=== PATIENT | male | born 1955 | race African-American/Black ===

== ENCOUNTER 2018-08-06 09:50 | Inpatient (IN) | payer OTHER ==
[~2018-08-06] VITALS: Ht 172.7 cm; Wt 90.7 kg
[2018-08-06] MEDS ORDERED: SODIUM CHLORIDE 0.9% 1,000 ML IV ONE ×2 (10:49→11:47)
[2018-08-06 11:11] LABS: BASOPHILS % 0.8 % (0.0-2.0); EOSINOPHILS % 0.3 % (0.0-5.0); HEMATOCRIT. 41.3 % (42.0-52.0); HEMOGLOBIN. 13.9 g/dL (14.0-18.0); LYMPHOCYTES % 13.9 % (20.0-50.0); MEAN CORPUSCULAR HEMOGLOBIN 30.8 pg (28.0-32.0); MEAN CORPUSCULAR VOLUME 91.8 fL (80.0-94.0); MEAN PLATELET VOLUME 9.4 fl (7.4-10.4); MONOCYTES % 9.1 % (2.0-8.0); NEUTROPHILS % 75.9 % (40.0-76.0); PLATELET 165 x1000/uL (130-400); RED CELL DISTRIBUTION WIDTH 13.7 % (11.6-14.6)
[2018-08-06 11:19] LABS: INR 1.1; PROTHROMBIN TIME 10.7 sec (9.1-11.1)
[2018-08-06 11:21] LABS: CHLORIDE 95 mEq/L (98-107); ETHANOL BLOOD < 10 mg/dL
[2018-08-06 11:30] LABS: BETA HYDROXYBUTYRATE 1.4 mMol/L (0.0-0.3)
[2018-08-06] MEDS ORDERED: ASPIRIN 325MG EC TABLET PO ONE (12:00)
[2018-08-06 14:39] LABS: CLARITY URINE CLEAR (CLEAR); COLOR URINE YELLOW (YELLOW); KETONES URINE 2+ (NEGATIVE); LEUKOCYTE ESTERASE URINE NEGATIVE (NEGATIVE); NITRITE URINE NEGATIVE (NEGATIVE); OCCULT BLOOD URINE NEGATIVE (NEGATIVE); PH URINE 5.5 (4.5-8.0); PROTEIN URINE NEGATIVE (NEGATIVE); SPECIFIC GRAVITY URINE 1.028 (1.005-1.030); UROBILINOGEN URINE 0.2 E.U./dL (0.2-1.0)
[2018-08-06 14:48] LABS: *AMPHETAMINES SCREEN URINE NEGATIVE (NEGATIVE)
[2018-08-06 14:49] LABS: *BARBITURATES SCREEN URINE NEGATIVE (NEGATIVE); *BENZODIAZEPINES SCREEN URINE NEGATIVE (NEGATIVE); *COCAINE SCREEN URINE NEGATIVE (NEGATIVE); METHADONE URINE SCREEN NEGATIVE (NEGATIVE); OPIATES URINE SCREEN NEGATIVE (NEGATIVE); PHENCYCLIDINE URINE SCREEN NEGATIVE (NEGATIVE)
[2018-08-06 14:50] LABS: CANNABINOID URINE SCREEN NEGATIVE (NEGATIVE)
[2018-08-06] MEDS ORDERED: DIPHENHYDRAMINE 50MG/ML VIAL IV PRN (15:00)
[2018-08-06] MEDS ORDERED: HYDROCODONE/ACETAMINOPHEN 5/325MG TABLET PO PRN (15:00)
[2018-08-06] MEDS ORDERED: IPRATROPIUM/ALBUTEROL 0.5-3(2.5)MG/3ML NEB INH PRN (15:00)
[2018-08-06] MEDS ORDERED: DOCUSATE SODIUM 100MG CAPSULE PO PRN (15:00)
[2018-08-06] MEDS ORDERED: MAGNESIUM/ALUMINUM HYDROXIDE/SIMETHICONE 30ML UDC PO PRN (15:00)
[2018-08-06] MEDS ORDERED: ACETAMINOPHEN 650MG SUPP PR PRN (15:00)
[2018-08-06] MEDS ORDERED: SODIUM CHLORIDE 0.45% 1,000 ML IV SCH (15:00)
[2018-08-06] MEDS ORDERED: NA PHOS,M-B/NA PHOS,DI-BA ENEMA 118ML PR PRN ×2 (15:00→17:15)
[2018-08-06] MEDS ORDERED: ACETAMINOPHEN 325MG TABLET PO PRN (15:00)
[2018-08-06] MEDS ORDERED: GUAIFENESIN 200MG/10ML SUGAR FREE UDC PO PRN (15:00)
[2018-08-06] MEDS ORDERED: DEXTROSE 50% WATER 50ML SYRINGE IV PRN (15:00)
[2018-08-06] MEDS ORDERED: LORAZEPAM 0.5MG TABLET PO PRN (15:00)
[2018-08-06] MEDS ORDERED: ONDANSETRON HCL 4MG/2ML INJ IV PRN (15:00)
[2018-08-06] MEDS ORDERED: BLOOD SUGAR DIAGNOSTIC STRIP TEST SCH (17:00)
[2018-08-06] MEDS: BLOOD SUGAR DIAGNOSTIC STRIP TEST SCH ×2 (17:40→20:52)
[2018-08-06] MEDS ORDERED: INSULIN LISPRO 100 UNITS/ML SUBCUT SCH (18:20)
[2018-08-06 18:23] VITALS: BP 148/78
[2018-08-06 18:31] VITALS: BP 148/78
[2018-08-06] MEDS ORDERED: ASPI-986 MT (18:56)
[2018-08-06] MEDS ORDERED: AMLO10TA80 MT (18:56)
[2018-08-06] MEDS ORDERED: COR25 MT (18:56)
[2018-08-06] MEDS ORDERED: CLOP75TA16 MT (18:56)
[2018-08-06] MEDS ORDERED: AZIL80TA MT (18:56)
[2018-08-06] MEDS ORDERED: CLON0.2T MT (18:56)
[2018-08-06] MEDS ORDERED: CLON0.2T PO (18:56)
[2018-08-06] MEDS ORDERED: DONE10TA43 MT (18:56)
[2018-08-06] MEDS ORDERED: BACL-141 MT (18:56)
[2018-08-06 20:00] VITALS: BP 130/74
[2018-08-06] MEDS: SODIUM CHLORIDE 0.45% 1,000 ML IV SCH (20:52)
[2018-08-06] MEDS: ENOXAPARIN 30MG/0.3ML SYR SUBCUT SCH (20:52)
[2018-08-06] MEDS: INSULIN LISPRO 100 UNITS/ML SUBCUT SCH (20:58)
[2018-08-07 00:15] VITALS: BP 109/61
[2018-08-07 01:02] LABS: CREATINE KINASE 106 IU/L (39-308)
[2018-08-07 04:00] VITALS: BP 115/72
[2018-08-07] MEDS: BLOOD SUGAR DIAGNOSTIC STRIP TEST SCH ×4 (06:28→21:48)
[2018-08-07] MEDS ORDERED: INSULIN LISPRO 100 UNITS/ML SUBCUT NR (06:29)
[2018-08-07] MEDS: INSULIN LISPRO 100 UNITS/ML SUBCUT SCH ×4 (06:44→21:59)
[2018-08-07 08:00] VITALS: BP 152/87
[2018-08-07] MEDS ORDERED: ASPIRIN 81MG EC TABLET PO SCH (09:00)
[2018-08-07 11:11] LABS: BASOPHILS % 0.7 % (0.0-2.0); EOSINOPHILS % 0.8 % (0.0-5.0); HEMATOCRIT. 38.1 % (42.0-52.0); HEMOGLOBIN. 12.8 g/dL (14.0-18.0); LYMPHOCYTES % 25.3 % (20.0-50.0); MEAN CORPUSCULAR HEMOGLOBIN 30.8 pg (28.0-32.0); MEAN CORPUSCULAR VOLUME 91.5 fL (80.0-94.0); MEAN PLATELET VOLUME 9.4 fl (7.4-10.4); MONOCYTES % 10.3 % (2.0-8.0); NEUTROPHILS % 62.9 % (40.0-76.0); PLATELET 151 x1000/uL (130-400); RED BLOOD CELL COUNT 4.17 mill/uL (4.7-6.1); RED CELL DISTRIBUTION WIDTH 13.8 % (11.6-14.6)
[2018-08-07] MEDS: ENOXAPARIN 30MG/0.3ML SYR SUBCUT SCH ×2 (11:42→22:24)
[2018-08-07] MEDS: ASPIRIN 81MG EC TABLET PO SCH (11:42)
[2018-08-07] MEDS: SODIUM CHLORIDE 0.45% 1,000 ML IV SCH ×2 (11:53→20:00)
[2018-08-07 12:00] VITALS: BP 178/94
[2018-08-07 12:08] LABS: T4 FREE 1.34 ng/dL (0.76-1.46)
[2018-08-07 12:36] LABS: VITAMIN B12 SERUM > 2000.0 pg/mL (211-911)
[2018-08-07 13:15] LABS: CHLORIDE 101 mEq/L (98-107)
[2018-08-07 13:22] LABS: LDL CHOLESTEROL 68 mg/dL (5-100)
[2018-08-07 13:23] LABS: CREATINE KINASE 91 IU/L (39-308)
[2018-08-07 13:24] LABS: HDL CHOLESTEROL 46 mg/dL (40-59); T4 FREE 1.37 ng/dL (0.76-1.46)
[2018-08-07 16:00] VITALS: BP 138/80
[2018-08-07] MEDS: AMLODIPINE 5MG TABLET PO SCH (18:11)
[2018-08-07 20:00] VITALS: BP 161/86
[2018-08-07] MEDS: INSULIN GLARGINE UD 100 UNITS/ML SYR SUBCUT SCH (21:54)
[2018-08-08 00:26] VITALS: BP 106/73
[2018-08-08 04:00] VITALS: BP 118/74
[2018-08-08] MEDS: AMLODIPINE 5MG TABLET PO SCH ×2 (06:00→18:02)
[2018-08-08] MEDS: BLOOD SUGAR DIAGNOSTIC STRIP TEST SCH ×4 (07:09→21:31)
[2018-08-08 07:11] LABS: CHLORIDE 105 mEq/L (98-107)
[2018-08-08 07:23] LABS: BASOPHILS % 0.8 % (0.0-2.0); EOSINOPHILS % 1.2 % (0.0-5.0); HEMATOCRIT. 38.6 % (42.0-52.0); LYMPHOCYTES % 30.7 % (20.0-50.0); MEAN CORPUSCULAR HEMOGLOBIN 30.5 pg (28.0-32.0); MEAN CORPUSCULAR VOLUME 90.4 fL (80.0-94.0); MEAN PLATELET VOLUME 9.2 fl (7.4-10.4); MONOCYTES % 11.4 % (2.0-8.0); NEUTROPHILS % 55.9 % (40.0-76.0); PLATELET 152 x1000/uL (130-400); RED BLOOD CELL COUNT 4.27 mill/uL (4.7-6.1)
[2018-08-08 08:00] VITALS: BP 181/102
[2018-08-08] MEDS: ASPIRIN 81MG EC TABLET PO SCH (08:30)
[2018-08-08] MEDS: ENOXAPARIN 30MG/0.3ML SYR SUBCUT SCH ×2 (08:31→21:31)
[2018-08-08] MEDS: CLONIDINE 0.1MG TABLET PO PRN (08:31)
[2018-08-08] MEDS: INSULIN LISPRO 100 UNITS/ML SUBCUT SCH ×4 (08:33→21:44)
[2018-08-08] MEDS: SODIUM CHLORIDE 0.45% 1,000 ML IV SCH (08:36)
[2018-08-08] MEDS: INSULIN GLARGINE UD 100 UNITS/ML SYR SUBCUT SCH ×2 (10:41→21:43)
[2018-08-08 12:00] VITALS: BP 151/85
[2018-08-08] MEDS ORDERED: CLONIDINE 0.1MG TABLET PO NR (14:15)
[2018-08-08 16:00] VITALS: BP 164/91
[2018-08-08 20:00] VITALS: BP 99/54
[2018-08-08] MEDS: CLONIDINE 0.1MG TABLET PO SCH (21:31)
[2018-08-09 00:12] VITALS: BP 143/84
[2018-08-09 04:00] VITALS: BP 148/89
[2018-08-09] MEDS: CLONIDINE 0.1MG TABLET PO SCH (06:13)
[2018-08-09] MEDS: AMLODIPINE 5MG TABLET PO SCH (06:14)
[2018-08-09] MEDS: INSULIN LISPRO 100 UNITS/ML SUBCUT SCH (06:14)
[2018-08-09] MEDS: BLOOD SUGAR DIAGNOSTIC STRIP TEST SCH (06:14)
[2018-08-09 06:45] LABS: CHLORIDE 106 mEq/L (98-107)
[2018-08-09 06:50] LABS: BASOPHILS % 0.9 % (0.0-2.0); EOSINOPHILS % 1.3 % (0.0-5.0); HEMATOCRIT. 38.2 % (42.0-52.0); HEMOGLOBIN. 12.9 g/dL (14.0-18.0); LYMPHOCYTES % 27.5 % (20.0-50.0); MEAN CORPUSCULAR HEMOGLOBIN 30.7 pg (28.0-32.0); MEAN PLATELET VOLUME 9.3 fl (7.4-10.4); MONOCYTES % 11.4 % (2.0-8.0); NEUTROPHILS % 58.9 % (40.0-76.0); PLATELET 151 x1000/uL (130-400); RED CELL DISTRIBUTION WIDTH 14.1 % (11.6-14.6)
[2018-08-09 08:00] VITALS: BP 186/92
[2018-08-09] MEDS: CLONIDINE 0.1MG TABLET PO PRN (08:40)
[2018-08-09] MEDS: ENOXAPARIN 30MG/0.3ML SYR SUBCUT SCH (08:40)
[2018-08-09] MEDS: ASPIRIN 81MG EC TABLET PO SCH (08:40)
[2018-08-09] MEDS ORDERED: POTASSIUM CHLORIDE 20MEQ TABLET SR PO NR (09:30)
[2018-08-09 09:56] VITALS: BP 106/72
[2018-08-09] MEDS: INSULIN GLARGINE UD 100 UNITS/ML SYR SUBCUT SCH (10:23)
== END 2018-08-09 11:02 | disposition home or self-care (01) | DRG 73 ==
LOC: ER 09:50 → EDBEDREQ 10:53 → 7WST 13:22 → EDBEDREQ 13:26 → ENRESERV 14:53 → ER 17:10
PROVIDERS: ADMIT Internal Medicine; ATTEND Internal Medicine
DX: G90.8 Other disorders of autonomic nervous system (principal); G92 Toxic encephalopathy; D68.59 Other primary thrombophilia; E87.2 Acidosis; I31.3 Pericardial effusion (noninflammatory); E11.65 Type 2 diabetes mellitus with hyperglycemia; E78.5 Hyperlipidemia, unspecified; D64.9 Anemia, unspecified; Z96.41 Presence of insulin pump (external) (internal); M48.02 Spinal stenosis, cervical region; M19.90 Unspecified osteoarthritis, unspecified site; R26.9 Unspecified abnormalities of gait and mobility; H53.461 Homonymous bilateral field defects, right side; I10 Essential (primary) hypertension; Z79.02 Long term (current) use of antithrombotics/antiplatelets; Z79.4 Long term (current) use of insulin; Z86.73 Personal history of transient ischemic attack (TIA), and cerebral infarction without residual deficits; Z91.041 Radiographic dye allergy status; Z79.899 Other long term (current) drug therapy; Z79.82 Long term (current) use of aspirin
CPT/HCPCS: 36415; 70551; 71045; 80048; 80061; 80305; 80320; 82010; 82140; 82550; 82553; 82607; 82746; 82962; 83036; 83605; 83880; 84439; 84443; 84481; 84484; 85379; 93005; 93306; 93880; 93970; 96360; 96361; 96372; 97162; 99291; J1650; J1815; J7030; G0480

== ENCOUNTER 2019-03-08 16:23 | Inpatient (IN) | payer OTHER ==
[~2019-03-08] VITALS: Ht 172.7 cm; Wt 83.5 kg
[~2019-03-08 16:23] MED LIST: AMLO10TA80 MT; ASPI-986 MT; AZIL80TA MT; BACL-141 MT; CLON0.2T MT; CLON0.2T PO; CLOP75TA4 MT; COR25 MT; DONE10TA43 MT
[2019-03-08] MEDS ORDERED: METHOCARBAMOL 750MG TABLET PO ONE (20:00)
[2019-03-08] MEDS ORDERED: MORPHINE SULFATE 10 MG/ML CPJ IM ONE (20:00)
[2019-03-08] MEDS ORDERED: KETOROLAC 60MG/2ML VIAL IM ONE (20:00)
[2019-03-08] MEDS ORDERED: CLONIDINE 0.2MG TABLET PO ONE (22:00)
[2019-03-08] MEDS ORDERED: HYDRALAZINE 20MG/ML VIAL IV ONE (22:30)
[2019-03-08 22:57] LABS: EOSINOPHILS % 1.1 % (0.0-5.0); HEMATOCRIT. 41.5 % (42.0-52.0); HEMOGLOBIN. 14.3 g/dL (14.0-18.0); LYMPHOCYTES % 29.1 % (20.0-50.0); MEAN CORPUSCULAR HEMOGLOBIN 30.8 pg (28.0-32.0); MEAN CORPUSCULAR VOLUME 89.3 fL (80.0-94.0); MEAN PLATELET VOLUME 8.9 fl (7.4-10.4); MONOCYTES % 8.6 % (2.0-8.0); NEUTROPHILS % 60.2 % (40.0-76.0); PLATELET 148 x1000/uL (130-400); RED BLOOD CELL COUNT 4.65 mill/uL (4.7-6.1); RED CELL DISTRIBUTION WIDTH 12.9 % (11.6-14.6)
[2019-03-08 23:02] LABS: CHLORIDE 104 mEq/L (98-107)
[2019-03-09 04:00] VITALS: BP 192/92
[2019-03-09 04:27] VITALS: BP 192/92
[2019-03-09 08:00] VITALS: BP 144/81
[2019-03-09 12:00] VITALS: BP 182/98
[2019-03-09] MEDS ORDERED: CLONIDINE 0.1MG TABLET PO PRN (12:30)
[2019-03-09] MEDS ORDERED: DIPHENHYDRAMINE 50MG/ML VIAL IV PRN (12:30)
[2019-03-09] MEDS ORDERED: GUAIFENESIN 200MG/10ML SUGAR FREE UDC PO PRN (12:30)
[2019-03-09] MEDS ORDERED: LORAZEPAM 0.5MG TABLET PO PRN (12:30)
[2019-03-09] MEDS ORDERED: BACLOFEN 10MG TABLET PO PRN (12:30)
[2019-03-09] MEDS ORDERED: HYDROCODONE/ACETAMINOPHEN 5/325MG TABLET PO PRN (12:30)
[2019-03-09] MEDS ORDERED: DOCUSATE SODIUM 100MG CAPSULE PO PRN (12:30)
[2019-03-09] MEDS ORDERED: IPRATROPIUM/ALBUTEROL 0.5-3(2.5)MG/3ML NEB NEB PRN (12:30)
[2019-03-09] MEDS ORDERED: ACETAMINOPHEN 650MG SUPP PR PRN (12:30)
[2019-03-09] MEDS ORDERED: NA PHOS,M-B/NA PHOS,DI-BA ENEMA 118ML PR PRN (12:30)
[2019-03-09] MEDS ORDERED: CLOPIDOGREL 75MG TABLET PO SCH (12:30)
[2019-03-09] MEDS: CARVEDILOL 12.5MG TABLET PO SCH ×2 (12:50→21:09)
[2019-03-09] MEDS: DONEPEZIL HCL 10MG TABLET PO SCH (12:51)
[2019-03-09] MEDS: CLONIDINE 0.2MG TABLET PO SCH ×2 (12:51→22:00)
[2019-03-09] MEDS: AMLODIPINE 10MG TABLET PO SCH (12:51)
[2019-03-09] MEDS ORDERED: ASPIRIN 81MG EC TABLET PO SCH (13:00)
[2019-03-09] MEDS ORDERED: ENOXAPARIN 40MG/0.4ML SYR SUBCUT SCH (13:00)
[2019-03-09] MEDS ORDERED: HYDRALAZINE 20MG/ML VIAL IV PRN (13:45)
[2019-03-09] MEDS ORDERED: DEXTROSE 50% WATER 50ML SYRINGE IV PRN (15:15)
[2019-03-09 15:58] LABS: CREATINE KINASE 138 IU/L (39-308)
[2019-03-09 15:59] LABS: CREATINE KINASE MB FRACTION 2.2 ng/mL (0.5-3.6)
[2019-03-09 16:00] VITALS: BP 117/65
[2019-03-09] MEDS ORDERED: CARVEDILOL MT SCH (17:00)
[2019-03-09] MEDS: INSULIN LISPRO 100 UNITS/ML SUBCUT SCH ×2 (17:21→21:11)
[2019-03-09] MEDS: BLOOD SUGAR DIAGNOSTIC STRIP TEST SCH ×2 (17:22→21:06)
[2019-03-09 19:02] LABS: CLARITY URINE CLEAR (CLEAR); COLOR URINE YELLOW (YELLOW); KETONES URINE 2+ (NEGATIVE); LEUKOCYTE ESTERASE URINE NEGATIVE (NEGATIVE); NITRITE URINE NEGATIVE (NEGATIVE); OCCULT BLOOD URINE TRACE (NEGATIVE); PH URINE 6.5 (4.5-8.0); PROTEIN URINE TRACE (NEGATIVE); UROBILINOGEN URINE 0.2 E.U./dL (0.2-1.0)
[2019-03-09 20:00] VITALS: BP 117/58
[2019-03-09 20:22] LABS: *AMPHETAMINES SCREEN URINE NEGATIVE (NEGATIVE); *BARBITURATES SCREEN URINE NEGATIVE (NEGATIVE); *BENZODIAZEPINES SCREEN URINE NEGATIVE (NEGATIVE); *COCAINE SCREEN URINE NEGATIVE (NEGATIVE); CANNABINOID URINE SCREEN NEGATIVE (NEGATIVE)
[2019-03-09 20:23] LABS: METHADONE URINE SCREEN NEGATIVE (NEGATIVE); OPIATES URINE SCREEN PRESUMTIVE POSITIVE (NEGATIVE); PHENCYCLIDINE URINE SCREEN NEGATIVE (NEGATIVE)
[2019-03-10] VITALS: BP 145/91
[2019-03-10 00:19] LABS: CREATINE KINASE 110 IU/L (39-308)
[2019-03-10 00:21] LABS: CREATINE KINASE MB FRACTION 1.7 ng/mL (0.5-3.6)
[2019-03-10 04:00] VITALS: BP 151/85
[2019-03-10] MEDS: BLOOD SUGAR DIAGNOSTIC STRIP TEST SCH ×6 (06:02→21:24)
[2019-03-10] MEDS: CLONIDINE 0.2MG TABLET PO SCH ×3 (06:15→21:31)
[2019-03-10] MEDS: INSULIN LISPRO 100 UNITS/ML SUBCUT SCH ×4 (06:17→21:26)
[2019-03-10 07:38] LABS: BASOPHILS % 0.9 % (0.0-2.0); EOSINOPHILS % 1.2 % (0.0-5.0); HEMATOCRIT. 42.3 % (42.0-52.0); HEMOGLOBIN. 14.4 g/dL (14.0-18.0); LYMPHOCYTES % 34.5 % (20.0-50.0); MEAN CORPUSCULAR HEMOGLOBIN 30.9 pg (28.0-32.0); MEAN CORPUSCULAR VOLUME 90.6 fL (80.0-94.0); MEAN PLATELET VOLUME 9.1 fl (7.4-10.4); MONOCYTES % 9.2 % (2.0-8.0); NEUTROPHILS % 54.2 % (40.0-76.0); PLATELET 158 x1000/uL (130-400); RED BLOOD CELL COUNT 4.66 mill/uL (4.7-6.1)
[2019-03-10 08:00] VITALS: BP 116/62
[2019-03-10 08:23] LABS: CHLORIDE 103 mEq/L (98-107)
[2019-03-10 08:37] LABS: LDL CHOLESTEROL 55 mg/dL (5-100)
[2019-03-10 08:38] LABS: HDL CHOLESTEROL 50 mg/dL (40-59); T4 FREE 1.44 ng/dL (0.76-1.46)
[2019-03-10] MEDS ORDERED: ASPIRIN 325MG TABLET PO SCH (09:00)
[2019-03-10] MEDS: DONEPEZIL HCL 10MG TABLET PO SCH (11:11)
[2019-03-10] MEDS: CARVEDILOL 12.5MG TABLET PO SCH ×2 (11:11→21:00)
[2019-03-10] MEDS: AMLODIPINE 10MG TABLET PO SCH (11:12)
[2019-03-10] MEDS: ONDANSETRON HCL 4MG/2ML INJ IV PRN (15:47)
[2019-03-10 16:00] VITALS: BP 135/84
[2019-03-10] MEDS ORDERED: MORPHINE SULFATE 2 MG/ML CPJ (NOT FOR IM USE) IV PRN (16:00)
[2019-03-10] MEDS ORDERED: DEXTROSE 50% WATER 50ML SYRINGE IV PRN (16:15)
[2019-03-10] MEDS: [UNRECOGNIZED DRUG - REMARK] PO SCH (17:30)
[2019-03-10 18:59] LABS: INR 1.1; PROTHROMBIN TIME 11.6 sec (9.6-11.0)
[2019-03-10 20:00] VITALS: BP 111/67
[2019-03-11] VITALS (7 sets, daily range): BP systolic 95–155; BP diastolic 60–94
[2019-03-11] MEDS: BLOOD SUGAR DIAGNOSTIC STRIP TEST SCH ×4 (06:51→21:24)
[2019-03-11] MEDS: INSULIN LISPRO 100 UNITS/ML SUBCUT SCH ×4 (06:57→21:30)
[2019-03-11] MEDS: CLONIDINE 0.2MG TABLET PO SCH ×3 (06:58→21:32)
[2019-03-11 07:33] LABS: EOSINOPHILS % 1.2 % (0.0-5.0); HEMOGLOBIN. 14.8 g/dL (14.0-18.0); LYMPHOCYTES % 29.3 % (20.0-50.0); MEAN CORPUSCULAR VOLUME 89.9 fL (80.0-94.0); MEAN PLATELET VOLUME 9.2 fl (7.4-10.4); MONOCYTES % 8.7 % (2.0-8.0); NEUTROPHILS % 59.8 % (40.0-76.0); PLATELET 170 x1000/uL (130-400); RED BLOOD CELL COUNT 4.78 mill/uL (4.7-6.1)
[2019-03-11 07:59] LABS: CHLORIDE 101 mEq/L (98-107)
[2019-03-11 08:09] LABS: PHOSPHORUS 4.1 mg/dL (2.5-4.9)
[2019-03-11] MEDS: ONDANSETRON HCL 4MG/2ML INJ IV PRN (08:14)
[2019-03-11] MEDS: [UNRECOGNIZED DRUG - REMARK] PO SCH (09:00)
[2019-03-11] MEDS: CARVEDILOL 12.5MG TABLET PO SCH ×2 (09:00→21:32)
[2019-03-11] MEDS: AMLODIPINE 10MG TABLET PO SCH (09:00)
[2019-03-11] MEDS: DONEPEZIL HCL 10MG TABLET PO SCH (09:52)
[2019-03-11] MEDS ORDERED: INSULIN GLARGINE UD 100 UNITS/ML SYR SUBCUT ONE (16:00)
[2019-03-11] MEDS: INSULIN GLARGINE UD 100 UNITS/ML SYR SUBCUT SCH (18:09)
[2019-03-12] VITALS: BP 126/79
[2019-03-12 04:22] VITALS: BP 133/62
[2019-03-12] MEDS: BLOOD SUGAR DIAGNOSTIC STRIP TEST SCH ×3 (06:25→21:00)
[2019-03-12] MEDS: INSULIN LISPRO 100 UNITS/ML SUBCUT SCH ×3 (06:26→23:27)
[2019-03-12] MEDS: CLONIDINE 0.2MG TABLET PO SCH ×3 (06:26→22:00)
[2019-03-12] MEDS ORDERED: THROMBIN (BOVINE) 5000 UNITS/VIAL TOP ONE (06:30)
[2019-03-12] MEDS ORDERED: LIDOCAINE HCL/EPINEPHRINE 1%-EPI 1:100,000 20 ML VIAL ONE (06:31)
[2019-03-12] MEDS ORDERED: BACITRACIN 50,000 UNITS/VIAL ONE (06:31)
[2019-03-12] MEDS ORDERED: ROCURONIUM BROMIDE 10MG/ML VIAL 5ML IV ONE (06:56)
[2019-03-12] MEDS ORDERED: PROPOFOL 200MG/20ML VIAL IV ONE (06:56)
[2019-03-12] MEDS ORDERED: FENTANYL CITRATE/PF 50MCG/ML 2ML VIAL ONE (06:56)
[2019-03-12] MEDS ORDERED: NEOSTIGMINE METHYLSULFATE 1MG/ML 10 ML VIAL ONE (06:56)
[2019-03-12] MEDS ORDERED: GLYCOPYRROLATE 0.2 MG/ML 2ML VIAL ONE ×2 (06:56→08:50)
[2019-03-12] MEDS ORDERED: MIDAZOLAM HCL 2 MG/2 ML VIAL ONE (06:56)
[2019-03-12] MEDS: SODIUM CHLORIDE 0.9% 1,000 ML IV SCH (07:15)
[2019-03-12] MEDS ORDERED: MORPHINE SULFATE 4 MG/ML CPJ (NOT FOR IM USE) IV PRN (07:15)
[2019-03-12] MEDS ORDERED: ONDANSETRON HCL 4MG/2ML INJ ONE (07:22)
[2019-03-12] MEDS ORDERED: DEXAMETHASONE 4MG/ML 1ML VIAL ONE (07:22)
[2019-03-12] MEDS ORDERED: HYDROMORPHONE HCL/PF 2MG/ML CPJ IV PRN (08:15)
[2019-03-12] MEDS ORDERED: LABETALOL 5MG/ML SYR 20 MG/4 ML SYRINGE IV PRN (08:15)
[2019-03-12] MEDS ORDERED: MEPERIDINE HCL/PF 25MG/ML CPJ IV PRN (08:15)
[2019-03-12] MEDS ORDERED: ONDANSETRON HCL 4MG/2ML INJ IV PRN (08:15)
[2019-03-12] MEDS: CARVEDILOL 12.5MG TABLET PO SCH ×2 (09:00→21:57)
[2019-03-12] MEDS: AMLODIPINE 10MG TABLET PO SCH (09:00)
[2019-03-12] MEDS: [UNRECOGNIZED DRUG - REMARK] PO SCH (09:00)
[2019-03-12] MEDS: DONEPEZIL HCL 10MG TABLET PO SCH (09:00)
[2019-03-12] MEDS ORDERED: HYDRALAZINE 20MG/ML VIAL IV PRN (09:00)
[2019-03-12] MEDS ORDERED: HYDROMORPHONE HCL/PF 2MG/ML (OR) ONE (09:08)
[2019-03-12] MEDS ORDERED: HYDRALAZINE 20MG/ML VIAL ONE (09:11)
[2019-03-12] MEDS ORDERED: HYDROMORPHONE PCA 50 ML IV ONE (10:45)
[2019-03-12] MEDS ORDERED: NALOXONE INJ IV PRN (11:15)
[2019-03-12] MEDS ORDERED: ONDANSETRON INJ IV PRN (11:15)
[2019-03-12] MEDS ORDERED: HYDROMORPHONE PCA 10MG/50ML IV PRN (11:15)
[2019-03-12] MEDS ORDERED: CEFAZOLIN SODIUM 1000MG/VIAL IV SCH (14:00)
[2019-03-12] MEDS: CEFAZOLIN 1000MG PREMIX 50 ML IV SCH (15:55)
[2019-03-12 20:00] VITALS: BP 130/66
[2019-03-13] VITALS: BP 100/54
[2019-03-13] MEDS: SODIUM CHLORIDE 0.9% 1,000 ML IV SCH ×2 (00:03→04:23)
[2019-03-13] MEDS: MAGNESIUM/ALUMINUM HYDROXIDE/SIMETHICONE 30ML UDC PO PRN (04:21)
[2019-03-13] MEDS: CEFAZOLIN 1000MG PREMIX 50 ML IV SCH ×3 (05:23→14:00)
[2019-03-13] MEDS: CLONIDINE 0.2MG TABLET PO SCH ×3 (05:23→21:25)
[2019-03-13 07:09] LABS: BASOPHILS % 0.4 % (0.0-2.0); HEMOGLOBIN. 13.1 g/dL (14.0-18.0); LYMPHOCYTES % 9.2 % (20.0-50.0); MEAN CORPUSCULAR HEMOGLOBIN 31.1 pg (28.0-32.0); MEAN CORPUSCULAR VOLUME 90.5 fL (80.0-94.0); MEAN PLATELET VOLUME 9.3 fl (7.4-10.4); MONOCYTES % 13.3 % (2.0-8.0); NEUTROPHILS % 77.1 % (40.0-76.0); PLATELET 159 x1000/uL (130-400); RED CELL DISTRIBUTION WIDTH 13.6 % (11.6-14.6)
[2019-03-13 07:27] LABS: CHLORIDE 102 mEq/L (98-107)
[2019-03-13] MEDS: BLOOD SUGAR DIAGNOSTIC STRIP TEST SCH ×4 (08:05→21:26)
[2019-03-13] MEDS: INSULIN LISPRO 100 UNITS/ML SUBCUT SCH ×4 (08:11→21:53)
[2019-03-13] MEDS: [UNRECOGNIZED DRUG - REMARK] PO SCH (09:00)
[2019-03-13] MEDS: AMLODIPINE 10MG TABLET PO SCH (09:03)
[2019-03-13] MEDS: CARVEDILOL 12.5MG TABLET PO SCH ×2 (09:04→21:25)
[2019-03-13] MEDS: DONEPEZIL HCL 10MG TABLET PO SCH (09:04)
[2019-03-13] MEDS: INSULIN GLARGINE UD 100 UNITS/ML SYR SUBCUT SCH (10:00)
[2019-03-13 20:00] VITALS: BP 104/62
[2019-03-14] VITALS: BP 119/5
[2019-03-14] MEDS: ACETAMINOPHEN 325MG TABLET PO PRN ×2 (00:33→08:42)
[2019-03-14 04:00] VITALS: BP 117/76
[2019-03-14] MEDS: CLONIDINE 0.2MG TABLET PO SCH ×3 (05:25→23:13)
[2019-03-14] MEDS: BLOOD SUGAR DIAGNOSTIC STRIP TEST SCH ×4 (07:20→21:00)
[2019-03-14] MEDS: CARVEDILOL 12.5MG TABLET PO SCH ×2 (08:41→20:45)
[2019-03-14] MEDS: DONEPEZIL HCL 10MG TABLET PO SCH (08:41)
[2019-03-14] MEDS: AMLODIPINE 10MG TABLET PO SCH (08:42)
[2019-03-14] MEDS: INSULIN LISPRO 100 UNITS/ML SUBCUT SCH ×4 (08:47→21:32)
[2019-03-14] MEDS: [UNRECOGNIZED DRUG - REMARK] PO SCH (09:00)
[2019-03-14] MEDS: INSULIN GLARGINE UD 100 UNITS/ML SYR SUBCUT SCH ×2 (10:10→23:21)
[2019-03-14] MEDS: FAMOTIDINE 20MG TABLET PO SCH ×2 (13:38→20:43)
[2019-03-14] MEDS ORDERED: HYDROCODONE/ACETAMINOPHEN 5/325MG TABLET PO PRN (14:45)
[2019-03-14] MEDS ORDERED: MAGNESIUM/ALUMINUM HYDROXIDE/SIMETHICONE 30ML UDC PO NR (14:45)
[2019-03-14] MEDS ORDERED: PANTOPRAZOLE SODIUM 40 MG/VIAL IV NR (14:45)
[2019-03-14 20:00] VITALS: BP 151/74
[2019-03-14] MEDS: MAGNESIUM/ALUMINUM HYDROXIDE/SIMETHICONE 30ML UDC PO PRN (20:46)
[2019-03-15 04:00] VITALS: BP 127/68
[2019-03-15] MEDS: CLONIDINE 0.2MG TABLET PO SCH ×2 (06:19→13:21)
[2019-03-15] MEDS: BLOOD SUGAR DIAGNOSTIC STRIP TEST SCH ×2 (07:40→12:22)
[2019-03-15 08:00] VITALS: BP 131/64
[2019-03-15] MEDS: FAMOTIDINE 20MG TABLET PO SCH (08:15)
[2019-03-15] MEDS: CARVEDILOL 12.5MG TABLET PO SCH (08:15)
[2019-03-15] MEDS: DONEPEZIL HCL 10MG TABLET PO SCH (08:15)
[2019-03-15] MEDS: AMLODIPINE 10MG TABLET PO SCH (08:15)
[2019-03-15] MEDS: INSULIN LISPRO 100 UNITS/ML SUBCUT SCH ×2 (08:16→12:22)
[2019-03-15] MEDS: [UNRECOGNIZED DRUG - REMARK] PO SCH (09:00)
[2019-03-15] MEDS: INSULIN GLARGINE UD 100 UNITS/ML SYR SUBCUT SCH (10:05)
[2019-03-15 12:00] VITALS: BP 130/77
[2019-03-15] MEDS: ACETAMINOPHEN 325MG TABLET PO PRN (12:36)
[2019-03-15 15:53] VITALS: BP 109/56
[2019-03-15] MEDS ORDERED: LEVOFLOXACIN 500MG PREMIX 100 ML IV SCH (16:00)
[2019-03-15 16:02] LABS: BASOPHILS % 0.3 % (0.0-2.0); EOSINOPHILS % 0.4 % (0.0-5.0); HEMATOCRIT. 35.7 % (42.0-52.0); HEMOGLOBIN. 12.2 g/dL (14.0-18.0); MEAN CORPUSCULAR HEMOGLOBIN 30.8 pg (28.0-32.0); MEAN CORPUSCULAR VOLUME 89.9 fL (80.0-94.0); MEAN PLATELET VOLUME 8.6 fl (7.4-10.4); MONOCYTES % 12.9 % (2.0-8.0); NEUTROPHILS % 72.4 % (40.0-76.0); PLATELET 149 x1000/uL (130-400); RED BLOOD CELL COUNT 3.97 mill/uL (4.7-6.1)
[2019-03-15 16:06] VITALS: BP 109/56
[2019-03-15 16:08] LABS: CHLORIDE 103 mEq/L (98-107)
== END 2019-03-15 16:48 | DRG 518 ==
LOC: ER 17:42 → 5WST 03-09 01:22 → ENRESERV 03-09 02:27 → 6EST 03-12 12:56
PROVIDERS: ADMIT Hospitalist; ATTEND Internal Medicine
PROC: 01NB0ZZ Release Lumbar Nerve, Open Approach (ICD-10-PCS; principal; 2019-03-12)
PROC: 0SB40ZZ Excision of Lumbosacral Disc, Open Approach (ICD-10-PCS; 2019-03-12)
PROC: 01NR0ZZ Release Sacral Nerve, Open Approach (ICD-10-PCS; 2019-03-12)
DX: M51.17 Intervertebral disc disorders with radiculopathy, lumbosacral region (principal); I50.33 Acute on chronic diastolic (congestive) heart failure; I16.0 Hypertensive urgency; M47.812 Spondylosis without myelopathy or radiculopathy, cervical region; I11.0 Hypertensive heart disease with heart failure; E11.41 Type 2 diabetes mellitus with diabetic mononeuropathy; E11.65 Type 2 diabetes mellitus with hyperglycemia; M50.121 Cervical disc disorder at C4-C5 level with radiculopathy; E78.5 Hyperlipidemia, unspecified; R29.6 Repeated falls; E78.00 Pure hypercholesterolemia, unspecified; M48.02 Spinal stenosis, cervical region; Z79.02 Long term (current) use of antithrombotics/antiplatelets; Z79.899 Other long term (current) drug therapy; Z87.891 Personal history of nicotine dependence; Z86.73 Personal history of transient ischemic attack (TIA), and cerebral infarction without residual deficits; Z79.4 Long term (current) use of insulin; Z91.041 Radiographic dye allergy status; Z79.82 Long term (current) use of aspirin
CPT/HCPCS: 36415; 71045; 72100; 72141; 72148; 76000; 80048; 80061; 80305; 81003; 82550; 82553; 82962; 83735; 83880; 84100; 84145; 84439; 84443; 84484; 88304; 88311; 93005; 93306; 93970; 95925; 95926; 95928; 95929; 96374; 97110; 97112; 97116; 97162; 97164; 97535; 99285; C9113; J0360; J0690; J1100; J1170; J1200; J1650; J1815; J1885; J1956; J2250; J2270; J2405; J2704; J2710; J3010; J3490; J7030